=== PATIENT | female | born 1975 | race African-American/Black ===

== ENCOUNTER 2018-03-28 07:38 | Observation (INO) ==
[2018-03-28] MEDS ORDERED: Chlorhexidine Gluconate 2% 1 Pack (2 Cloths) TOPICAL ONE (08:15)
[2018-03-28] MEDS ORDERED: Metoprolol Tartrate 25 MG Tablet PO ONE (08:15)
[2018-03-28] MEDS ORDERED: Sodium Chlor 0.9% Inj 500 ML IV.CONT ONE (08:15)
[2018-03-28] MEDS ORDERED: fentaNYL Citrate Inj 250 MCG/5 ML Ampul ONE (09:00)
[2018-03-28] MEDS ORDERED: ceFAZolin 2 GM IV; once IV.SIG SCH (09:00)
[2018-03-28] MEDS ORDERED: Bupivacaine/Epinephrine PF Inj 0.5% 30 ML Vial ONE (09:12)
[2018-03-28] MEDS ORDERED: Bisacodyl 10 MG Supp RECTAL PRN (11:33)
[2018-03-28] MEDS ORDERED: Naloxone Inj 0.4 MG/ML Vial IV.PUSH PRN (11:33)
[2018-03-28] MEDS ORDERED: Post-op Orders (for Pharmacy) OTHER ONE (11:33)
[2018-03-28] MEDS ORDERED: Promethazine 25 MG Supp RECTAL PRN (11:33)
[2018-03-28] MEDS ORDERED: *Promethazine Inj 25 MG/ML Vial PERIprocedural use ONLY ONE (11:41)
[2018-03-28] MEDS ORDERED: *Meperidine Inj 25 MG/ML Vial PERIprocedural Use ONLY ONE (11:51)
--- NOTE | 2018-03-28 11:54 | P.OP ---
- Preoperative Diagnosis (1) Gastroesophageal reflux disease with hiatal hernia - Postoperative Diagnosis (1) Gastroesophageal reflux disease with hiatal hernia Procedure: laparoscopic hiatal hernia repair with placement of sphincter augmentation device LINX Surgeon: Frank Dixon MD Outside Installation Machinist: Carroll Caputo Estimated blood loss (mL): 5 Pathology: none sent Operation and Findings: Moderate size hiatal hernia, linx 16#
[2018-03-28] MEDS: Sod Chloride 0.9% Inj 1,000 ML IV.CONT SCH ×2 (12:14→20:07)
[2018-03-28] MEDS: Pantoprazole Inj 40 MG Vial IV.PUSH SCH (12:20)
--- NOTE | 2018-03-28 12:45 | MP ---
cc: Frank Dixon MD DATE OF OPERATION: 03/28/2018 PREOPERATIVE DIAGNOSIS: Hiatal hernia itself with reflux esophagitis. POSTOPERATIVE DIAGNOSIS: Hiatal hernia itself with reflux esophagitis. PROCEDURE PERFORMED: Laparoscopic hiatal hernia repair with placement of magnetic sphincter augmentation device (LINX). SURGEON: Frank Dixon MD HAND BLOCKER: Carroll Mata MD. Dr. Carroll Mata was needed due to the complexity of the laparoscopic surgery. Dr. Mata assisted in camera control and retraction. ANESTHESIA: GETA. IV FLUIDS: See anesthesia sheet. ESTIMATED BLOOD LOSS: 5 mL DRAINS: None. COMPLICATIONS: None. WOUND CLASSIFICATION: Clean. FINDINGS: A moderate-sized hiatal hernia. LINX #16 device fit loosely around the gastroesophageal junction. INDICATIONS FOR PROCEDURE: This is a 42-year-old female who presented initially with history of morbid obesity, underwent weight loss surgery and had progressive worsening of reflux. She also was noted to have a moderate-sized hiatal hernia. She had a workup with a Cook chip, Demeester score showing 40. Therefore, decision was made for sphincter augmentation device and hiatal hernia repair. Discussed with the patient in detail. DETAILS OF PROCEDURE: The patient was taken to the operative suite, placed in supine position. She was prepped and draped in the usual sterile fashion after induction of general endotracheal anesthesia. Brief timeout was done stating correct patient, procedure and surgical site. We were all in agreement with this. Attention was directed to 11 cm subxiphoid, just above the umbilicus. Local anesthetic injected. A small geraldo incision was made with an 11 blade. The 5 mm Visiport Optiview port was used to enter the abdomen safely. Abdomen insufflated to 50 mmHg pneumoperitoneum. On cursory inspection, no evidence of injury. A sleeve gastrectomy was noted to be intact with minimal adhesions to the anterior liver. A second port placed was 5 mm right lower quadrant laterally to facilitate liver retraction. The patient was placed in steep reverse Trendelenburg and the left lobe of the liver was retracted with Mami-Flex liver retractor and robot arm was used to secure this in place. Several other ports were placed, including a right upper quadrant 12 mm port, followed by left upper quadrant, 5 mm, in the left lateral quadrant 5 mm port. The dissection began again with lysing some adhesions to the liver and anterior previous gastric sleeve. Hiatus was identified. There was noted to be a relatively sizable hiatal hernia. The gastrocolic ligament was taken down. This was done using Harmonic scalpel. The right diaphragmatic erum was identified. The hepatic branch of the vagus nerve was left uninjured. The herniation and fatty tissue from the mediastinum was reduced circumferentially. The phrenoesophageal ligament was taken down with Harmonic scalpel, allowing to develop intra-abdominal esophagus approximately 4-6 cm. The attachments to the left diaphragmatic erum were also released with sharp Harmonic scalpel, creating a posterior window and identification of the posterior vagus nerve was also identified in this window. A small window was made between the posterior vagus and the esophagus. This was developed with blunt graspers and a [place]. A 1/4 inch Pritesh was then cut and placed in order to assist in retraction of this. The sizing length device was used, placed in the peritoneal cavity around the patient's esophagus. The sizing was noted to fit comfortably, a 16 number length sized. The size 16 LINX implant was obtained and placed within the 12 mm right upper quadrant port, placed in the peritoneal cavity. This LINX was placed between the esophagus and posterior vagus. The Pritesh was removed. The connector clasps were used and placed in the locking position and confirmed. The finger device was noted to sit snugly but loosely on the esophagus at the GE junction. Next, attention was directed toward repair of the hiatal hernia. This was done using 0 silk sutures posteriorly in a [id number] fashion. There was a single 0 silk suture also placed anteriorly as to not create too sharp of an angle. The esophagus was noted to sit nice and loosely within the abdomen, again noting GE junction comfortably fit without tension. The Mami-Flex retractor was then removed. The trocars were removed under direct vision. Insufflation was removed. The patient tolerated the procedure. The ports were closed with 4-0 Monocryl and sterile dressings including Steri-Strips and Mastisol. There were no intraoperative complications. All lap and instrument counts were correct at the end of procedure. Dr. Mata assisted in the entire procedure. Dr. Mata was necessary due to the complexity of a laparoscopic case. Dr. Mata performed camera control suturing, again with laparoscopic assistance. The patient was taken stable to PACU. MD TOMER Ashton/lalo/hitesh , 12:03 PM , 12:15 PM
[2018-03-28] MEDS ORDERED: *HYDROmorphone PF Inj 1 MG/ML Ampul PERIprocedural Use ONLY ONE (12:53)
[2018-03-28] MEDS: Acetaminophen-HYDROcodone 325/7.5 Liq 15 ML UDC PO PRN ×2 (15:27→22:43)
[2018-03-28] MEDS ORDERED: Influenza (Quadrivalent) Vaccine 0.5 ML Syringe IM ONE (16:00)
[2018-03-28] MEDS ORDERED: Morphine Sulfate Inj 2 MG/ML Vial IV.PUSH PRN (16:59)
[2018-03-28] MEDS ORDERED: Ketorolac Inj 30 MG/ML (IVP) Vial IV.PUSH PRN (17:00)
[2018-03-28] MEDS: ceFAZolin 1 GM Premix Inj 1 GM/50 ML PIGGYBACK IV.SIG SCH (17:07)
[2018-03-28] MEDS: HYDROmorphone PF Inj 1 MG/ML Ampul IV.PUSH PRN (20:04)
[2018-03-28] MEDS: Senna/Docusate Sodium 8.6/50 MG Tablet PO SCH (20:04)
[2018-03-29] MEDS: Sod Chloride 0.9% Inj 1,000 ML IV.CONT SCH ×2 (00:10→09:57)
[2018-03-29] MEDS: ceFAZolin 1 GM Premix Inj 1 GM/50 ML PIGGYBACK IV.SIG SCH ×2 (03:26→11:54)
[2018-03-29] MEDS: HYDROmorphone PF Inj 1 MG/ML Ampul IV.PUSH PRN (04:47)
--- NOTE | 2018-03-29 09:49 | P.PNGS ---
Subjective Patient reports: feels better, tolerating liquids well, no flatus (Denies SOB, palpitations, or chest pain with exertion. ) Physical Exam Vital signs: Vital Signs 03/28/18 11:39 03/28/18 11:45 03/28/18 12:00 Temperature 96.3 F L 96.7 F L Pulse Rate 90 63 Respiratory Rate 24 12 Blood Pressure 122/76 109/60 95/51 L Pulse Oximetry 100 100 100 03/28/18 12:15 03/28/18 12:30 03/28/18 12:45 Temperature Pulse Rate 72 67 71 Respiratory Rate 16 16 16 Blood Pressure 97/52 L 126/56 L 99/54 L Pulse Oximetry 100 100 100 03/28/18 13:00 03/28/18 13:15 03/28/18 13:30 Temperature 97.3 F L Pulse Rate 73 79 71 Respiratory Rate 16 16 17 Blood Pressure 100/56 L 100/55 L 94/53 L Pulse Oximetry 100 100 100 03/28/18 14:21 03/28/18 16:00 03/28/18 20:00 Temperature 97.6 F 97.8 F Pulse Rate 83 94 H Respiratory Rate 16 18 Blood Pressure 90/58 L 97/57 L 110/70 Pulse Oximetry 97 97 03/29/18 00:00 03/29/18 04:00 03/29/18 07:56 Temperature 97.5 F L 97.9 F Pulse Rate 70 83 Respiratory Rate 18 18 Blood Pressure 104/65 116/72 Pulse Oximetry 97 97 94 L 03/29/18 08:00 Temperature 98.1 F Pulse Rate 79 Respiratory Rate 14 Blood Pressure 104/61 Pulse Oximetry 96 Intake & Output 03/28/18 03/29/18 03/29/18 18:59 06:59 18:59 Intake Total 2260 / 2260 1500 / 1500 Output Total 80 / 80 600 / 600 Balance 2180 / 2180 900 / 900 Weight 68.6 kg 63.7 kg Intake: IV 1400 / 1400 1250 / 1250 LR 1000 mL Inj 1,000 ML @ 30 1000 / 1000 mls/hr IV.CONT .Q24H ONE Rx#: [id number] NS Inj 1,000 ML @ 100 mls/hr IV 1000 / 1000 .CONT .Q10H KORIN Rx#:[id number] Ofirmev Inj 1,000 mg In 100 ml 300 / 300 200 / 200 @ 400 mls/hr IV.SIG Q6H KORIN Rx# :[id number] Ancef 1 GM Premix Inj 1 gm In 50 / 50 50 / 50 50 ml @ 200 mls/hr IV.SIG Q8H KORIN Rx#:[id number] Ancef 2 GM Premix Inj 2 gm In 50 / 50 50 ml @ 100 mls/hr IV.SIG AMMONIA TECHNICIAN KORIN Rx#:[id number] Oral 360 / 360 250 / 250 Anesthesia Amount 500 / 500 Output: Urine 600 / 600 Estimated Blood Loss 5 / 5 Urine Amount (Catheter) 75 / 75 Indwelling Urethral Catheter 75 / 75 Other: # Voids 1 Weight On Admission 68.6 kg Narrative: GENERAL: SKIN: Warm and dry. HEAD: Normocephalic. EYES: No scleral icterus. No injection or drainage. NECK: Supple, trachea midline. No JVD or lymphadenopathy. CARDIOVASCULAR: Regular rate and rhythm without murmurs, gallops, or rubs. RESPIRATORY: Breath sounds equal bilaterally. No accessory muscle use. GASTROINTESTINAL: Abdomen soft, normal post operative tenderness, laparoscopic sites WNL, mildly distended. MUSCULOSKELETAL: No cyanosis, or edema. BACK: Nontender without obvious deformity. No CVA tenderness. - Urinary Catheter Management Indwelling Urethral Catheter Cath placed during this visit: yes, but has since been removed by the nurse Reason for continuing: Hourly intake/output Insertion date: 03/28/18 Insertion time: 09:45 Removal date: 03/28/18 Removal time: 11:30 Assessment and Plan - Assessment (1) Gastroesophageal reflux disease with hiatal hernia Code(s): K21.9 - Gastro-esophageal reflux disease without esophagitis; K44.9 - Diaphragmatic hernia without obstruction or gangrene Status: Acute - Plan POD #1 s/p laparoscopic hiatal hernia repair with linx placement. tolerating full liquids well Pain well controlled. c/o substernal pain with deep breathing, IS, and ambulate, simethicone. Code Status: full Discussed Condition With: patient
[2018-03-29] MEDS: Senna/Docusate Sodium 8.6/50 MG Tablet PO SCH (09:56)
[2018-03-29] MEDS: Acetaminophen-HYDROcodone 325/7.5 Liq 15 ML UDC PO PRN (10:08)
[2018-03-29] MEDS ORDERED: Simethicone 125 MG Chew Tablet PO ONE (10:25)
[2018-03-29] MEDS: Pantoprazole Inj 40 MG Vial IV.PUSH SCH (12:17)
[2018-03-29 13:05] VITALS: BP 118/70; PULSE 76; RESP 15; TEMP 98; O2SAT 98
== END 2018-03-29 14:38 | disposition home or self-care (01) ==
LOC: HSDI 07:38 → HSDC 07:38 → N07 13:53
PROVIDERS: ADMIT Surgery; ATTEND Surgery